=== PATIENT | female | born 1960 | race Caucasian/White ===

== ENCOUNTER 2017-01-28 07:26 | Outpatient (CLI) | payer SELFPAY ==
[2015-04-11 10:00] VITALS: BP 136/82
[2017-01-28 08:21] LABS: eGFR (African) > 60; eGFR (Non-African) > 60
== END 2017-01-28 07:27 ==
LOC: LAB 07:26
PROVIDERS: ATTEND Physician Assistant
DX: E11.9 Type 2 diabetes mellitus without complications (principal)
CPT/HCPCS: 36415; 80053; 80061; 83036

== ENCOUNTER 2017-02-26 10:40 | Outpatient (CLI) | payer OTHER ==
[2015-04-11 10:00] VITALS: BP 136/82
[2017-02-26 10:54] LABS: BASOPHILS % 0.9 (0.0-1.5); EOSINOPHILS % 3.4 % (0.0-6.8); MEAN CORPUSCULAR HEMOGLOBIN 25.5 pg (28.0-34.0); MEAN CORPUSCULAR VOLUME 82.9 fl (80.0-100.0); MONOCYTES % 4.8 % (0.0-11.0); NEUTROPHILS # 2.5 # k/uL (1.4-7.7)
[2017-02-26 11:25] LABS: eGFR (African) > 60; eGFR (Non-African) > 60
== END 2017-02-26 10:42 ==
LOC: LAB 10:40 → EDSTATUS 13:10
PROVIDERS: ATTEND Family Medicine
DX: I10 Essential (primary) hypertension (principal); E11.9 Type 2 diabetes mellitus without complications; E78.00 Pure hypercholesterolemia, unspecified
CPT/HCPCS: 36415; 80053; 80061; 83036; 85025

== ENCOUNTER 2018-02-24 11:29 | Outpatient (CLI) | payer OTHER ==
[2015-04-11 10:00] VITALS: BP 136/82
[2018-02-24 11:53] LABS: BASOPHILS % 0.8 (0.0-1.5); EOSINOPHILS % 6.2 % (0.0-6.8); MONOCYTES % 3.1 % (0.0-11.0); NEUTROPHILS # 3.5 # k/uL (1.4-7.7)
[2018-02-24 12:13] LABS: eGFR (African) > 60; eGFR (Non-African) > 60
== END 2018-02-24 11:30 ==
LOC: LAB 11:29
PROVIDERS: ATTEND Family Medicine
DX: E11.9 Type 2 diabetes mellitus without complications (principal); E78.00 Pure hypercholesterolemia, unspecified; R63.5 Abnormal weight gain; I10 Essential (primary) hypertension
CPT/HCPCS: 36415; 80053; 80061; 83036; 84443; 85025

== ENCOUNTER 2018-03-25 10:45 | Outpatient (CLI) | payer OTHER ==
[2015-04-11 10:00] VITALS: BP 136/82
== END 2018-03-25 10:46 ==
LOC: LAB 10:45 → CARD 10:46
PROVIDERS: ATTEND Internal Medicine Cardiovascular Disease
DX: R07.9 Chest pain, unspecified (principal); E66.9 Obesity, unspecified; J45.909 Unspecified asthma, uncomplicated; G47.30 Sleep apnea, unspecified; I10 Essential (primary) hypertension; E78.00 Pure hypercholesterolemia, unspecified; E11.9 Type 2 diabetes mellitus without complications
CPT/HCPCS: 36415; 82306; 99213

== ENCOUNTER 2018-05-06 14:28 | Outpatient (CLI) | payer OTHER ==
[2015-04-11 10:00] VITALS: BP 136/82
== END 2018-05-06 14:30 ==
LOC: CARD 14:28
PROVIDERS: ATTEND Internal Medicine Cardiovascular Disease
DX: R07.9 Chest pain, unspecified (principal); R06.09 Other forms of dyspnea; E66.9 Obesity, unspecified; J45.909 Unspecified asthma, uncomplicated; G47.30 Sleep apnea, unspecified; I10 Essential (primary) hypertension; E78.5 Hyperlipidemia, unspecified; E11.9 Type 2 diabetes mellitus without complications
CPT/HCPCS: 99213

== ENCOUNTER 2018-05-28 09:39 | Outpatient (CLI) | payer OTHER ==
[2015-04-11 10:00] VITALS: BP 136/82
== END 2018-05-28 13:34 ==
LOC: LAB 09:39
PROVIDERS: ATTEND Family Medicine
DX: E55.9 Vitamin D deficiency, unspecified (principal); E11.9 Type 2 diabetes mellitus without complications
CPT/HCPCS: 36415; 82306; 83036

== ENCOUNTER 2018-06-07 09:23 | Emergency (ER) | payer OTHER ==
--- NOTE | 2018-06-07 09:42 | ED Physician Documentation ---
General Adult - HISTORIAN Historian: patient - HPI Stated Complaint: Dental Pain Chief Complaint: General Adult Onset: days ago (1) Timing: still present Severity: moderate Further Comments: yes (Pt is a 57 yo female with dental pain.) - ROS CONST: no problems EYES/ENT: other (dental pain) CVS/RESP: none GI/: none MS/SKIN/LYMPH: none - PAST HX Past History: other (obesity, sleep apnea) Allergies/Adverse Reactions: Allergies Allergy/AdvReac Type Severity Reaction Status Date / Time codeine [Codeine] Allergy Verified 02/22/13 11:15 Penicillins Allergy Verified 02/22/13 11:15 Home Medications: Ambulatory Orders Medication Instructions Recorded Clindamycin HCl 300 mg PO Q8H #30 capsule 06/07/18 - SOCIAL HX Smoking History: non-smoker - FAMILY HX Family History: No - VITAL SIGNS Vital Signs: Vital Signs Temp Pulse Resp BP Pulse Ox 97.8 F 96 H 22 149/100 96 06/07/18 09:25 06/07/18 09:25 06/07/18 09:25 06/07/18 09:25 06/07/18 09:25 - REVIEWED ASSESSMENTS Nursing Assessment Reviewed: Yes Vitals Reviewed: Yes Progress - Progress Progress: Clindamycin 300 mg IM in ER. Toradol 60 mg IM in ER. Rx Clindamycin 300 mg. Take one every 8 hours for 10 days. Rx Greene (5/325). Take one or two tablets by mouth every 4 to 6 hrs as needed for moderate to severe pain. f/u dentist. General Adult Physical Exam - PHYSICAL EXAM GENERAL APPEARANCE: moderate distress EENT: other (poor dentition, tenderness, swelling L upper jaw) NECK: normal inspection, supple RESPIRATORY: no resp distress, chest non-tender, breath sounds normal CVS: reg rate & rhythm, heart sounds normal BACK: normal inspection SKIN: warm/dry, normal color EXTREMITIES: non-tender, normal range of motion, no edema NEURO: oriented X3, motor nml, sensation nml Discharge Clincal Impression: Pain, dental Prescriptions: Clindamycin HCl 300 mg PO Q8H #30 capsule Referrals: Monty Mayo MD [Primary Care Provider] - Condition: Good Disposition: 01 HOME, SELF-CARE Decision to Admit: NO Decision Time: 10:19
[2018-06-07] MEDS ORDERED: KETOROLAC TROMETHAMINE 60 MG/2 ML VIAL ONE (09:58)
[2018-06-07] MEDS ORDERED: CLINDAMYCIN PHOSPHATE 300 MG/2 ML VIAL IM ONE (10:09)
[2018-06-07] MEDS ORDERED: CLINDAMYCIN PHOSPHATE 300 MG/2 ML VIAL ONE (10:09)
[2018-06-07 10:38] VITALS: BP 138/88
== END 2018-06-07 10:36 | disposition home or self-care (01) ==
LOC: ED 09:23
DX: K02.9 Dental caries, unspecified (principal)
CPT/HCPCS: J1885; J3490; 96372; 99283

== ENCOUNTER 2018-07-22 10:34 | Emergency (ER) | payer OTHER ==
--- NOTE | 2018-07-22 10:58 | ED Physician Documentation ---
Sore Throat/Dental Pain - HISTORIAN Historian: patient - HPI Stated Complaint: DENTAL PAIN Chief Complaint: Dental Pain Additional Information: 57yo white female with a 2 day hx of left lower dental pain. Has had some other dental problems. Is having some pain, having some fever and chills. Not sure how high fever has been. Has been nauseated with some vomiting. Urianting OK. - ROS CONST: no problems - PAST HX Past History: none (depressive disorder) Other History: diabetes Type 2, other (astma, HTN, hyperlipidemia) Immunizations: referred to PCP Allergies/Adverse Reactions: Allergies Allergy/AdvReac Type Severity Reaction Status Date / Time codeine [Codeine] Allergy Verified 07/22/18 10:59 Penicillins Allergy Verified 07/22/18 10:59 Home Medications: Ambulatory Orders Medication Instructions Recorded Clindamycin HCl 300 mg PO Q8H #30 capsule 06/07/18 Clindamycin HCl [Cleocin HCl] 300 mg PO QID #28 capsule 07/22/18 traMADol HCL [Ultram] 50 mg PO Q6H PRN #10 tablet 07/22/18 - SOCIAL HX Smoking History: non-smoker Alcohol Use: none Drug Use: none - FAMILY HX Family History: No - VITAL SIGNS Vital Signs: Vital Signs Temp Pulse Resp BP Pulse Ox 96.7 F L 98 H 18 163/98 99 07/22/18 10:51 07/22/18 10:51 07/22/18 10:51 07/22/18 10:51 07/22/18 10:51 - REVIEWED ASSESSMENTS Nursing Assessment Reviewed: Yes Vitals Reviewed: Yes Progress - Progress Progress: 12:04 Patient states that her pain is better but still present. Dental Pain Physical Exam - EXAM General Appearance: alert, mild distress Head/Neck: head nml inspection, trachea midline, no lymphadenopathy, mandibular swelling (L) (tenderness to the rgiht mandible). No: cervical lymphadenopathy Mouth/Throat: lips nml, pharynx nml, dental tenderness (right molar), gum swelling around teeth, widespread dental decay Ear/Nose: nml inspection Respiratory: no resp. distress, breath sounds nml. No: wheezes, rales, rhonchi CVS: reg. rate & rhythm, heart sounds nml Abdomen: soft, no organomegaly, normal bowel sounds, no distension, non-tender Skin: warm/dry Neuro/Psych: none Discharge Clincal Impression: Pain, dental Prescriptions: Clindamycin HCl [Cleocin HCl] 300 mg PO QID #28 capsule traMADol HCL [Ultram] 50 mg PO Q6H PRN #10 tablet PRN Reason: Pain Referrals: Monty Mayo MD [Primary Care Provider] - 2 Days Additional Instructions: Make a dental appointment. Take clindamycin 4 times a day until gone. Take Tramadol as needed for pain. See your primary care provider for any further pain management if needed. Watch for fever or chills or increase swelling. Condition: Stable Disposition: 01 HOME, SELF-CARE Decision to Admit: NO Date of Decison to Admit: 07/22/18 Decision Time: 12:19
[2018-07-22] MEDS ORDERED: KETOROLAC TROMETHAMINE 30 MG/1ML VIAL IVP ONE (11:08)
[2018-07-22 12:10] LABS: BASOPHILS % 0.3 (0.0-1.5); MEAN CORPUSCULAR HEMOGLOBIN 27.1 pg (28.0-34.0); MEAN CORPUSCULAR VOLUME 86.3 fl (80.0-100.0); MONOCYTES % 4.2 % (0.0-11.0); NEUTROPHILS # 5.6 # k/uL (1.4-7.7)
[2018-07-22 12:32] LABS: eGFR (Non-African) > 60
[2018-07-22 12:48] VITALS: BP 136/82
== END 2018-07-22 12:52 | disposition home or self-care (01) ==
LOC: ED 10:34
DX: K08.89 Other specified disorders of teeth and supporting structures (principal)
CPT/HCPCS: 80053; 85025; J1885; 96374; 99283; S1016

== ENCOUNTER 2018-07-30 09:33 | Outpatient (CLI) | payer OTHER | END 2018-07-30 09:35 | LOC: LAB 09:33 | PROVIDERS: ATTEND Family Medicine | DX: E55.9 Vitamin D deficiency, unspecified (principal) | CPT/HCPCS: 36415; 82306 ==

== ENCOUNTER 2018-11-24 14:39 | Outpatient (CLI) | payer OTHER ==
[2018-11-24 15:44] LABS: eGFR (Non-African) > 60
--- NOTE | 2018-11-24 18:05 | Diagnostic Imaging Report ---
KATHY YATES [facility] [id number] [facility] [address] [place] [address]. [id number] Report Submission Date: Nov 24, 2018 4:09:22 PM BULK FILLER Patient Study Name: CUBA CHUNG Date: Nov 24, 2018 3:02:46 PM BULK FILLER Modality Type: DX Gender: F Description: CHEST : 64 Institution: [facility] Physician: KATHY YATES Examination: PA and lateral chest. History: Evaluate lung staton. HX OF ASTHMA (Hx) Comparison exam: None provided. Findings: PA and lateral views of the chest demonstrates a normal cardiac and mediastinal silhouette. No focal infiltrate. No blunting of the costophrenic margins. Osseous structures are appropriate for age. Impression: No acute pulmonary process. Electronically signed on Nov 24, 2018 4:09:22 PM BULK FILLER by: Davey BRIZUELA
== END 2018-11-24 15:05 ==
LOC: RT 14:39
PROVIDERS: ATTEND Family Medicine
DX: R55 Syncope and collapse (principal); E11.9 Type 2 diabetes mellitus without complications; I10 Essential (primary) hypertension
CPT/HCPCS: 36415; 71046; 80053; 83036

== ENCOUNTER 2018-12-15 11:27 | Outpatient (CLI) | payer OTHER ==
[2018-12-15 12:04] LABS: eGFR (Non-African) > 60
== END 2018-12-15 11:35 ==
LOC: LAB 11:27
PROVIDERS: ATTEND Family Medicine
DX: R51 Headache (principal)
CPT/HCPCS: 36415; 80048; 85651

== ENCOUNTER 2019-01-27 10:23 | Outpatient (CLI) | payer OTHER | END 2019-01-27 10:35 | LOC: LAB 10:23 | PROVIDERS: ATTEND Family Medicine | DX: D35.2 Benign neoplasm of pituitary gland (principal) | CPT/HCPCS: 36415; 82024; 83001; 83002; 84146; 84443; 84480 ==

== ENCOUNTER 2019-04-21 17:00 | Outpatient (CLI) | payer OTHER ==
[2019-03-05 14:21] VITALS: BP 141/105
== END 2019-04-21 17:05 | disposition home or self-care (01) ==
LOC: LABRHC 17:00
PROVIDERS: ATTEND Nurse Practitioner Family
DX: N39.0 Urinary tract infection, site not specified (principal); B96.1 Klebsiella pneumoniae [K. pneumoniae] as the cause of diseases classified elsewhere; Z16.11 Resistance to penicillins
CPT/HCPCS: 87086

== ENCOUNTER 2019-04-24 11:55 | Outpatient (CLI) | payer OTHER ==
[2019-03-05 14:21] VITALS: BP 141/105
== END 2019-04-24 12:00 | disposition home or self-care (01) ==
LOC: LAB 11:55
PROVIDERS: ATTEND Family Medicine
DX: E11.9 Type 2 diabetes mellitus without complications (principal)
CPT/HCPCS: 36415; 83036

== ENCOUNTER 2019-05-25 15:30 | Outpatient (CLI) | payer OTHER ==
[2019-03-05 14:21] VITALS: BP 141/105
--- NOTE | 2019-05-25 18:05 | Diagnostic Imaging Report ---
KATHY YATES [facility] [id number] [facility].[address] [id number] Report Submission Date: May 25, 2019 4:34:38 PM CDT Patient Study Name: CUBA MCBRIDE Date: May 25, 2019 3:52:23 PM CDT MRN: [id number] Modality Type: US Gender: F Description: : 64 Institution: [facility] Physician: KATHY YATES Examination: Ultrasound right vein History: RT LEG PAIN Findings: Sonographic evaluation of the right lower extremity venous system from the groin to the popliteal fossa inclusive. Normal compressibility. No luminal filling defect. Normal waveforms and response to augmentation. No popliteal region fluid collection. Impression: No evidence for deep venous thrombosis. Electronically signed on May 25, 2019 4:34:38 PM CDT by: Davey BRIZUELA
== END 2019-05-25 15:33 ==
LOC: RAD 15:30
PROVIDERS: ATTEND Family Medicine
DX: M79.604 Pain in right leg (principal)
CPT/HCPCS: 93971

== ENCOUNTER 2019-07-01 16:19 | Outpatient (CLI) | payer OTHER ==
[2019-03-05 14:21] VITALS: BP 141/105
== END 2019-07-01 16:21 ==
LOC: LAB 16:19
PROVIDERS: ATTEND Family Medicine
DX: M12.9 Arthropathy, unspecified (principal)
CPT/HCPCS: 36415; 85651; 86431